=== PATIENT | male | born 1965 | race Caucasian/White ===

== ENCOUNTER 2023-04-09 04:14 | Day surgery (SDC) | payer OTHER ==
[2023-04-03 15:34] VITALS: BMI 24.3
[~2023-04-09 04:14] MED LIST: BUPIVACAINE HCL/PF 0.25% (2.5MG/ML) 10 ML VIAL IJ ONE
[2023-04-09] MEDS ORDERED: cefOXitin SODIUM 2 GM VIAL (RESTRICTED TO ID) IVPB ONE (14:03)
[2023-04-09] MEDS ORDERED: BUPIVACAINE HCL/PF 0.25% (2.5MG/ML) 10 ML VIAL ONE (14:03)
[2023-04-09] MEDS ORDERED: MIDAZOLAM HCL 2 MG/2 ML SINGLE DOSE VIAL ONE (14:32)
[2023-04-09] MEDS ORDERED: ceFAZolin SODIUM 1 GM VIAL IVPB ONE (14:52)
[2023-04-09] MEDS ORDERED: HEPARIN NA (PORCINE) 5,000 UNITS/ML 1ML VIAL ONE (14:59)
[2023-04-09] MEDS ORDERED: PROPOFOL 20 ML ONE ×2 (14:59→17:24)
[2023-04-09] MEDS ORDERED: ROCURONIUM BROMIDE 50 MG/5 ML SYRINGE ONE (15:02)
[2023-04-09] MEDS ORDERED: BUPIVACAINE HCL/PF 0.25% (2.5MG/ML) 10 ML VIAL IJ ONE (15:08)
[2023-04-09] MEDS ORDERED: ePHEDrine SULFATE 50 MG/1 ML AMPULE ONE (15:16)
[2023-04-09] MEDS ORDERED: ACETAMINOPHEN INJECTION 100 ML IVPB ONE (15:16)
[2023-04-09] MEDS ORDERED: ONDANSETRON 4 MG/2 ML VIAL IVPUSH PRN ×2 (15:18→17:55)
[2023-04-09] MEDS ORDERED: HYDROmorphone HCl 2 MG/ML VIAL ONE (15:22)
[2023-04-09] MEDS ORDERED: KETAMINE HCL 200 MG/20 ML VIAL ONE (15:28)
[2023-04-09] MEDS ORDERED: GLYCOPYRROLATE 0.2 MG/1 ML VIAL ONE (15:28)
[2023-04-09] MEDS ORDERED: LACTATED RINGERS SOLUTION 1,000 ML IV SCH ×2 (15:30→18:00)
[2023-04-09] MEDS ORDERED: SUGAMMADEX SODIUM 200 MG/2 ML VIAL ONE (17:26)
[2023-04-09 23:34] VITALS: BP 120/80; PULSE 75; RESP 18; TEMP 97.8
== END 2023-04-09 23:30 | disposition home or self-care (01) ==
LOC: JASUSAT 04:14 → JASU-SURG 04:14 → J5S 19:53 → JASUSAT 23:30
PROVIDERS: ATTEND Surgery
PROC: 8E0W4CZ Robotic Assisted Procedure of Trunk Region, Percutaneous Endoscopic Approach (ICD-10-PCS; 2023-04-09)
PROC: 0WUF4JZ Supplement Abdominal Wall with Synthetic Substitute, Percutaneous Endoscopic Approach (ICD-10-PCS; principal; 2023-04-09 13:30)
DX: K42.9 Umbilical hernia without obstruction or gangrene (principal)
CPT/HCPCS: 49591; S2900; 94760; C1781; J1644